=== PATIENT | male | born 1995 | race Caucasian/White ===

== ENCOUNTER 2017-08-06 13:58 | Emergency (ER) | payer OTHER ==
[2017-08-06] MEDS: KETOROLAC 60 MG/2 ML VIAL (J1885) IM (16:48)
== END 2017-08-06 16:53 | disposition home or self-care (01) ==
LOC: M ED 13:58
DX: S00.81XA Abrasion of other part of head, initial encounter (principal); W00.0XXA Fall on same level due to ice and snow, initial encounter; Y92.9 Unspecified place or not applicable; Y93.9 Activity, unspecified
CPT/HCPCS: J1885